=== PATIENT | male | born 1950 | race Caucasian/White ===

== ENCOUNTER 2024-11-22 20:29 | Inpatient (IN) | payer OTHER ==
[~2024-11-22] VITALS: Ht 185.4 cm; Wt 90.7 kg
[~2024-11-22 20:29] MED LIST: ASPI81CH PO; ATOR40TA PO; LISI5 PO; Omeprazole20 M1 PO; Saw Palmetto450 MG PO
[2024-11-22 21:46] LABS: BASOPHILS ABSOLUTE AUTO 0.03 K/mm3 (0.00-0.23); BASOPHILS PERCENT AUTO 0 % (0-2); EOSINOPHILS ABSOLUTE AUTO 0.08 K/mm3 (0.00-0.68); EOSINOPHILS PERCENT AUTO 1 % (0-6); Hematocrit 45.6 % (37.0-53.0); Hemoglobin 15.6 g/dL (13.5-17.5); IMMATURE GRAN ABSOLUTE AUTO 0.05 K/mm3 (0.00-0.10); IMMATURE GRAN PERCENT AUTO 0 % (0-1); LYMPHOCYTES ABSOLUTE AUTO 1.57 K/mm3 (0.84-5.20); LYMPHOCYTES PERCENT AUTO 12 % (21-46); MONOCYTES ABSOLUTE AUTO 1.02 K/mm3 (0.16-1.47); MONOCYTES PERCENT AUTO 7 % (4-13); Mean Corpuscular HGB Conc 34.2 g/dL (31.5-36.5); Mean Corpuscular Volume 84 fL (80-100); NEUTROPHILS ABSOLUTE AUTO 10.95 K/mm3 (1.96-9.15); NEUTROPHILS PERCENT AUTO 80 % (41-73); NRBC ABSOLUTE 0.00 K/mm3 (0.00-0.02); NRBC Auto 0.0 /100 WBC (0.0-0.2); Platelet Count 209 K/mm3 (150-400); RDW Coefficient Variation 13.5 % (11.7-14.2); RDW Standard Deviation 41.3 fL (35.1-46.3)
[2024-11-22 22:04] LABS: Alanine Aminotransfer (ALT/SGP 15.0 U/L (12-78); Albumin, Blood 3.7 g/dL (3.4-5.0); Albumin/Globulin Ratio 0.9 (0.8-1.8); Anion Gap 8.0 mmol/L (3-11); Aspartate Aminotrans (AST/SGOT 19.0 U/L (12-37); Bilirubin, Total 1.3 mg/dL (0.1-1.0); Blood Urea Nitrogen 13.0 mg/dL (8-24); CO2, Blood 27.0 mmol/L (21-32); Calcium, Blood 9.1 mg/dL (8.5-10.1); Chloride, Blood 103.0 mmol/L (98-108); Creatinine, Blood 1.0 mg/dL (0.60-1.20); Globulin, Blood 4.2 g/dL (2.2-4.0); Glucose, Blood 111.0 mg/dL (70-99); Potassium, Blood 4.0 mmol/L (3.5-5.5); Sodium, Blood 134.0 mmol/L (136-145); Total Protein, Blood 7.9 g/dL (6.4-8.2)
[2024-11-22] MEDS ORDERED: Morphine Sulfate 4 MG/1 ML Injection IV ONE (23:15)
[2024-11-22] MEDS ORDERED: Ondansetron HCl 2 MG / ML 2ML Vial IV ONE (23:15)
[2024-11-23] VITALS (18 sets, daily range): BP systolic 124–165; BP diastolic 65–95
[2024-11-23] MEDS ORDERED: Ketorolac Tromethamine 15mg Vial IV ONE (00:45)
[2024-11-23] MEDS ORDERED: Morphine Sulfate 4 MG/1 ML Injection IV ONE (01:25)
[2024-11-23 01:54] LABS: Source, Urine Clean Catch
[2024-11-23 01:58] LABS: Bilirubin, Urine Neg (Neg); Glucose Qualitative, Urine Neg (Neg); Ketones, Urine Neg (Neg); Leukocyte Esterase, Urine Neg (Neg); Protein, Urine 1+ (Neg); Specific Gravity, Urine 1.010 (1.003-1.022); Urobilinogen, Urine NORM (Normal)
[2024-11-23] MEDS ORDERED: NS 1,000 ML IV SCH ×2 (02:00)
[2024-11-23] MEDS ORDERED: Ondansetron HCl 2 MG / ML 2ML Vial IV PRN ×2 (02:00→18:35)
[2024-11-23] MEDS ORDERED: Morphine Sulfate 4 MG/1 ML Injection IV PRN ×2 (02:00→11:40)
[2024-11-23 02:04] LABS: Color, Urine Pale Yellow (P-Yellow)
[2024-11-23 02:05] LABS: Red Blood Cells, Urine 0-2 /hpf (0-2); White Blood Cells, Urine 0-2 /hpf (0-5)
[2024-11-23] MEDS ORDERED: Piperacillin/Tazobactam Sod 3.375 GM in NS 100 ML IV SCH (02:14)
[2024-11-23 05:21] LABS: Hematocrit 42.4 % (37.0-53.0); Hemoglobin 14.2 g/dL (13.5-17.5); Mean Corpuscular HGB Conc 33.5 g/dL (31.5-36.5); Mean Corpuscular Volume 85 fL (80-100); NRBC ABSOLUTE 0.00 K/mm3 (0.00-0.02); NRBC Auto 0.0 /100 WBC (0.0-0.2); Platelet Count 167 K/mm3 (150-400); RDW Coefficient Variation 13.5 % (11.7-14.2); RDW Standard Deviation 41.7 fL (35.1-46.3)
[2024-11-23 05:35] LABS: Prothrombin Time Results 12.2 Sec (9.7-11.5)
[2024-11-23 05:45] LABS: Alanine Aminotransfer (ALT/SGP 31.0 U/L (12-78); Albumin, Blood 3.1 g/dL (3.4-5.0); Albumin/Globulin Ratio 0.9 (0.8-1.8); Anion Gap 8.0 mmol/L (3-11); Aspartate Aminotrans (AST/SGOT 62.0 U/L (12-37); Bilirubin, Total 2.2 mg/dL (0.1-1.0); Blood Urea Nitrogen 14.0 mg/dL (8-24); CO2, Blood 26.0 mmol/L (21-32); Calcium, Blood 8.4 mg/dL (8.5-10.1); Chloride, Blood 103.0 mmol/L (98-108); Creatinine, Blood 0.97 mg/dL (0.60-1.20); Globulin, Blood 3.6 g/dL (2.2-4.0); Glucose, Blood 111.0 mg/dL (70-99); Potassium, Blood 3.6 mmol/L (3.5-5.5); Sodium, Blood 133.0 mmol/L (136-145); Total Protein, Blood 6.7 g/dL (6.4-8.2)
--- NOTE | 2024-11-23 05:49 | NUR ---
SHIFT SUMMARY PT ADMITTED TO ROOM 333 FROM ED AT 0345 FOR ACUTE CHOLECYSTITIS. PT NPO WITH CONTINUOUS IVF INFUSING. PT ON ROOM AIR WITH CONTINUOUS PULSE OX PER ORDER. PT STATES PAIN AND NAUSEA MEDICATIONS GIVEN IN ED ARE STILL EFFECTIVE. PT EDUCATED ON FREQUENCY OF PRN MEDICATION. PT RESTING WITH EYES CLOSED. BED IN LOWEST POSITION, CALL LIGHT WITHIN REACH, SIDERAILS UP X2.
[2024-11-23] MEDS ORDERED: Heparin Sodium,Porcine 5,000 UNIT/0.5 ML SDV SC SCH (09:00)
[2024-11-23] MEDS ORDERED: Rocuronium Bromide 10 MG/ML 5ML Injection IV ONE ×2 (12:22→16:36)
[2024-11-23] MEDS ORDERED: FentaNYL Citrate 50 MCG/ML 2 ML Injection ONE (12:23)
[2024-11-23] MEDS ORDERED: Midazolam HCl 1MG / ML 2ML Vial ONE (12:23)
[2024-11-23] MEDS ORDERED: Bupivacaine 0.5% HCl 5 MG/ML 30MLVIAL ONE (15:13)
[2024-11-23] MEDS ORDERED: Phenylephrine HCl 100 MCG/ML-NS 10MLSYR (1MG/10ML) ONE (15:33)
[2024-11-23] MEDS ORDERED: Ondansetron HCl 2 MG / ML 2ML Vial ONE (15:35)
[2024-11-23] MEDS ORDERED: Dexamethasone Sod Phos 10 MG/ML 1ML VIAL ONE (15:35)
[2024-11-23] MEDS ORDERED: Ketorolac Tromethamine 30mg Vial ONE (17:16)
[2024-11-23] MEDS ORDERED: Sugammadex Sodium 200 MG/2ML SDV (100 MG/ML) ONE (17:16)
[2024-11-23] MEDS ORDERED: HYDROmorphone HCl/Pf 1MG SYR ONE (18:25)
[2024-11-23] MEDS ORDERED: FentaNYL Citrate 50 MCG/ML 2 ML Injection IV PRN ×3 (18:30→18:35)
[2024-11-23] MEDS ORDERED: HYDROmorphone HCl/Pf 1MG SYR IV PRN (18:35)
[2024-11-23] MEDS ORDERED: Prochlorperazine Edisylate 10 mg Vial IV PRN (18:35)
[2024-11-23] MEDS ORDERED: Albuterol 2.5 MG/3 ML VIAL INH PRN (18:35)
--- NOTE | 2024-11-23 19:20 | NUR ---
SHIFT SUMMARY PT A&OX4. PT ADMITTED DUE TO ACUTE CHOLESYSTITIS. PT REPORTS NO CHEST PAIN OR SOB. PT HAD NS GOING AT 100ML/HR THIS AM. TIMOTHY POTTER ROUNDED ON PT THIS AM. PT PICKED UP TO GO TO OR AT 11AM. CARE TRANSITION MANAGER REPORTED DELAY IN PROCEDURE. PT CAME BACK TO FLOOR AT 1840. PT TRANSFERED VIA SLIDER SHEET. PT HAS 4 LAP SITES, C/D/I. CARE TRANSITION MANAGER REPORTED JUST GIVEN DILAUDID FOR BACK PAIN. POST OP VITALS STARTED. PT HAS WATER AT BEDSIDE. PT SPO2 IS 94% ON 3L OF O2 VIA N/C. GAVE OR REPORT TO NIGHT RN. FAMILY AT BEDSIDE. PT IN BED, BED IN LOWEST POSITION, CALL LIGHT IN REACH.
[2024-11-24 03:44] VITALS: BP 126/71
[2024-11-24 05:27] LABS: BASOPHILS ABSOLUTE AUTO 0.00 K/mm3 (0.00-0.23); BASOPHILS PERCENT AUTO 0 % (0-2); EOSINOPHILS ABSOLUTE AUTO 0.00 K/mm3 (0.00-0.68); EOSINOPHILS PERCENT AUTO 0 % (0-6); Hematocrit 38.5 % (37.0-53.0); Hemoglobin 13.1 g/dL (13.5-17.5); IMMATURE GRAN ABSOLUTE AUTO 0.13 K/mm3 (0.00-0.10); IMMATURE GRAN PERCENT AUTO 1 % (0-1); LYMPHOCYTES ABSOLUTE AUTO 0.79 K/mm3 (0.84-5.20); LYMPHOCYTES PERCENT AUTO 8 % (21-46); MONOCYTES ABSOLUTE AUTO 0.54 K/mm3 (0.16-1.47); MONOCYTES PERCENT AUTO 5 % (4-13); Mean Corpuscular HGB Conc 34.0 g/dL (31.5-36.5); Mean Corpuscular Volume 85 fL (80-100); NEUTROPHILS ABSOLUTE AUTO 8.93 K/mm3 (1.96-9.15); NEUTROPHILS PERCENT AUTO 86 % (41-73); NRBC ABSOLUTE 0.00 K/mm3 (0.00-0.02); NRBC Auto 0.0 /100 WBC (0.0-0.2); Platelet Count 145 K/mm3 (150-400); RDW Coefficient Variation 13.3 % (11.7-14.2); RDW Standard Deviation 41.7 fL (35.1-46.3)
[2024-11-24 05:50] LABS: Alanine Aminotransfer (ALT/SGP 31.0 U/L (12-78); Albumin, Blood 2.5 g/dL (3.4-5.0); Albumin/Globulin Ratio 0.6 (0.8-1.8); Anion Gap 8.0 mmol/L (3-11); Aspartate Aminotrans (AST/SGOT 50.0 U/L (12-37); Bilirubin, Total 0.8 mg/dL (0.1-1.0); Blood Urea Nitrogen 16.0 mg/dL (8-24); CO2, Blood 27.0 mmol/L (21-32); Calcium, Blood 8.0 mg/dL (8.5-10.1); Chloride, Blood 104.0 mmol/L (98-108); Creatinine, Blood 1.08 mg/dL (0.60-1.20); Globulin, Blood 4.0 g/dL (2.2-4.0); Glucose, Blood 125.0 mg/dL (70-99); Potassium, Blood 3.9 mmol/L (3.5-5.5); Sodium, Blood 135.0 mmol/L (136-145); Total Protein, Blood 6.5 g/dL (6.4-8.2)
--- NOTE | 2024-11-24 06:33 | NUR ---
SHIFT SUMMARY PT RETURNED FROM PACU JUST PRIOR TO THIS SHIFT. LAP SITES X4 RADIOLOGY SCHEDULER WITH SKIN GLUE, WELL APPROXIMATED WITHOUT REDNESS OR SWELLING. PT DENIED NAUSEA THROUGHOUT THE SHIFT, MEDICATED X1 FOR PAIN WTIH OXYCODONE PER EMAR. PT WEANED FROM 3L 02 TO ROOM AIR. CONTINUOUS PULSE OX IN PLACE. POST OP VITALS WNL. PT SLEPT LONG INTERVALS THROUGH THE NIGHT. BED IN LOWEST POSITION, CALL LIGHT WITHIN REACH, SIDERAILS UP X2.
[2024-11-24 07:52] VITALS: BP 116/75
--- NOTE | 2024-11-24 07:59 | NUR ---
NOTE PT ON ROOM AIR. DR. MORALES ROUNDED ON PT, REPORTED "HE CAN LIKELY GO HOME AFTER DR. AGUIRRE COMES TO ROUND ON PT." AWAITING DR. AGUIRRE TO ROUND. DR. MORALES GAVE VERBAL ORDER TO DC FLUIDS.
[2024-11-24] MEDS ORDERED: ONDA4ODT MM (09:32)
[2024-11-24] MEDS ORDERED: OXYC5 PO (09:34)
--- NOTE | 2024-11-24 09:57 | NUR ---
NOTE DR. AGUIRRE ROUNDED ON PT. "CLEARED FOR DISCHARGE
--- NOTE | 2024-11-24 10:53 | NUR ---
DISCHARGE NOTE PT A&OX4. PT ADMITTE DUE TO ACUTE MONICA. PT POD1. HAS X4 LAP SITES, LEATHER HEEL BREASTER NO S/S INFECTION. PT ON ROOM AIR. DR. MORALES, ORDERED DISCHARGE. PT REPORTS NO CHEST PAIN SOB. PT REPORTS MINIMAL PAIN. PT HAS HARD SCRIPT FOR OXY. COPY IN CHART. POLISHER SAND DID DISCHARGE PAPERWORK. IV D/C. MEDS FAXED TO PREFERED PHARM. EDUCATED ABOUT BOWEL CARE. PT AT BEDSIDE. PT TOOK PERSONAL BELONGINGS. NO NAUSEA. PT ESCORTED TO PT ENTERANCE BY SERVICE STATION CASHIER.
== END 2024-11-24 11:22 | disposition home or self-care (01) | DRG 419 ==
LOC: ER 20:29 → MEDS 11-23 01:55 → SURS 11-23 01:55 → MEDS 11-23 03:33
PROVIDERS: Family Medicine; Student in an Organized Health Care Education/Training Program; Surgery; ADMIT Internal Medicine
PROC: 8E0W4CZ Robotic Assisted Procedure of Trunk Region, Percutaneous Endoscopic Approach (ICD-10-PCS; 2024-11-23)
PROC: 0FT44ZZ Resection of Gallbladder, Percutaneous Endoscopic Approach (ICD-10-PCS; principal; 2024-11-23 14:30)
DX: K81.0 Acute cholecystitis (principal); K82.A1 Gangrene of gallbladder in cholecystitis; I10 Essential (primary) hypertension; E78.5 Hyperlipidemia, unspecified; M54.9 Dorsalgia, unspecified; N40.0 Benign prostatic hyperplasia without lower urinary tract symptoms; I12.9 Hypertensive chronic kidney disease with stage 1 through stage 4 chronic kidney disease, or unspecified chronic kidney disease; N18.31 Chronic kidney disease, stage 3a; Z87.891 Personal history of nicotine dependence; Z79.1 Long term (current) use of non-steroidal anti-inflammatories (NSAID); Z79.82 Long term (current) use of aspirin; Z79.899 Other long term (current) drug therapy; Z98.890 Other specified postprocedural states
CPT/HCPCS: 36415; 71046; 74177; 76705; 80053; 81001; 83605; 83690; 85025; 85027; 85610; 87040; 88304; 93005; 93010; 96374-59; 96375; 96376; 99285-25; A9270; J1100; J1171; J1885; J2250; J2270; J2371; J2405; J2543; J2704; J3010; J7030; J7120; Q9967